=== PATIENT | male | born 1990 | race Caucasian/White ===

== ENCOUNTER → 2022-12-13 09:56 | Outpatient (BNVA) | payer BC, SELFPAY | PROVIDERS: Family Provider Family Medicine; PCP Family Medicine; Visit Provider Family Medicine | DX: E34.9 Endocrine disorder, unspecified (principal); Z51.81 Encounter for therapeutic drug level monitoring | CPT/HCPCS: 80053; 84403; 85025 ==

== ENCOUNTER 2023-11-14 13:38 | Oncology outpatient (recurring) (ONCR) | payer BC, SELFPAY ==
[2023-11-14 14:17] VITALS: BP 129/83; BP 134/84; PULSE 101; PULSE 96; RESP 16; TEMP 36.4; TEMP 36.6; O2SAT 96
== END 2023-12-05 23:59 | disposition home or self-care (01) ==
PROVIDERS: Family Provider Family Medicine; PCP Family Medicine
DX: D75.1 Secondary polycythemia (principal); Z53.9 Procedure and treatment not carried out, unspecified reason
CPT/HCPCS: 85018; 99195